=== PATIENT | female | born 1985 | race Caucasian/White ===

== ENCOUNTER 2023-11-21 06:29 | Emergency (ER) | payer SELFPAY ==
[~2023-11-21] VITALS: Ht 157.5 cm; Wt 66.0 kg
[2023-11-21 06:36] VITALS: O2SAT 98
[2023-11-21] MEDS ORDERED: IBUP-2030 MT (08:02)
[2023-11-21] MEDS ORDERED: MUPI1OIN4 TP (08:02)
[2023-11-21] MEDS ORDERED: CEPH500C2 MT (08:02)
[2023-11-21 08:21] VITALS: BP 108/70; PULSE 88; RESP 18; TEMP 36.94740; O2SAT 98
== END 2023-11-21 08:22 | disposition home or self-care (01) ==
LOC: ER 06:29
DX: L92.3 Foreign body granuloma of the skin and subcutaneous tissue (principal); Z98.890 Other specified postprocedural states
CPT/HCPCS: 99283